=== PATIENT | male | born 1975 | race African-American/Black ===

== ENCOUNTER 2019-02-17 18:04 | Emergency (ER) | payer MEDICARE ==
[2019-02-17] MEDS ORDERED: DIAZEPAM 5 MG TABLET PO ONE (18:11)
--- NOTE | 2019-02-17 18:17 | Emergency Department Record ---
History of Present Illness - General Chief Complaint: Back Pain/Injury Stated Complaint: BACK PAIN Time Seen by Provider: 02/17/19 18:05 Source: Patient Mode of Arrival: Wheelchair Limitations: No limitations - History of Present Illness Initial Comments: 43 yo male presents to ED for evaluation of right-sided low back pain symptoms after heavy lifting at work 4 days ago. Patient denies numbness, tingling, or extremity weakness on examination. Patient denies numbness over the groin, urinary retention symptoms. Patient denies fever or history of IVDA, denies previous back surgery. Patient has take Ketoralac x 1 that he reports did not help with his pain symptoms at home. MD Complaint: Back pain Onset/Timin -: Days(s) Place: Work Radiation: None Severity: Moderate Quality: Aching Consistency: Constant Improves With: Sitting upright Worsens With: Movement Context: While lifting Associated Symptoms: Denies other symptoms Treatments Prior to Arrival: NSAIDS - Related Data Previous Rx's Medication Instructions Recorded Diazepam [Valium] 5 mg PO Q8H PRN #9 tab 02/17/19 Ibuprofen [Motrin] 800 mg PO Q6H PRN #30 tab 02/17/19 Allergies Allergy/AdvReac Type Severity Reaction Status Date / Time coconut Allergy hives Verified 02/17/19 19:53 Review of Systems Constitutional: Denies: Chills, Fever, Malaise, Night sweats Eyes: Denies: Eye discharge, Eye pain ENT: Denies: Congestion, Ear pain, Epistaxis Respiratory: Denies: Cough, Dyspnea Cardiovascular: Denies: Chest pain, Dyspnea on exertion Endocrine: Denies: Fatigue, Heat or cold intolerance Gastrointestinal: Denies: Abdominal pain, Nausea, Vomiting Genitourinary: Denies: Incontinence, Retention Musculoskeletal: Reports: Back pain. Denies: Arthralgia, Gout, Joint swelling Skin: Denies: Bruising, Change in color Neurological: Denies: Abnormal gait, Confusion, Headache, Weakness Psychiatric: Denies: Anxiety Hematological/Lymphatic: Denies: Anemia, Blood Clots Past Medical History - SOCIAL HISTORY Smoking Status: Never smoker Drug Use: None - RESPIRATORY Hx Respiratory Disorders: No - CARDIOVASCULAR Hx Cardio Disorders: No - NEURO Hx Neuro Disorders: No - GI Hx GI Disorders: No - Hx Genitourinary Disorders: No - ENDOCRINE Hx Endocrine Disorders: Yes Hx Diabetes: Yes - MUSCULOSKELETAL Hx Musculoskeletal Disorders: No - PSYCH Hx Psych Problems: No - HEMATOLOGY/ONCOLOGY Hx Hematology/Oncology Disorders: No Family Medical History Family Hx Comment (NOT TO BE USED IN PLACE OF ITEMS BELOW): none Physical Exam - General General Appearance: Alert, Oriented x3, Cooperative, Moderate distress (Due to pain symptoms) Limitations: No limitations - Head Head exam: Atraumatic, Normocephalic, Normal inspection Head exam detail: negative: Abrasion, Contusion, Siegel's sign, General tenderness, Hematoma, Laceration - Eye Eye exam: Normal appearance. negative: Conjunctival injection, Periorbital swelling, Periorbital tenderness, Scleral icterus - ENT Ear exam: negative: Auricular hematoma, Auricular trauma Nasal Exam: negative: Active bleeding, Discharge, Dried blood, Foreign body Mouth exam: negative: Drooling, Laceration, Muffled voice, Tongue elevation - Neck Neck exam: Normal inspection. negative: Meningismus, Tenderness - Respiratory Respiratory exam: Normal lung sounds bilaterally. negative: Respiratory distress, Rhonchi, Stridor, Wheezes - Cardiovascular Cardiovascular Exam: Regular rate, Normal rhythm, Normal heart sounds - GI/Abdominal GI/Abdominal exam: Soft. negative: Distended, Rebound, Rigid, Tenderness - Rectal Rectal exam: Deferred - exam: Deferred - Extremities Extremities exam: negative: Calf tenderness, Pedal edema, Tenderness - Back Back exam: Reports: Paraspinal tenderness (Right sided paravertebral muscles are TTP on exmaination, mild TTP over the midling lower lumbar region on examination, no erythema or rash present on examination.) - Neurological Neurological exam: Alert, Oriented X3. negative: Motor sensory deficit - Psychiatric Psychiatric exam: Normal affect, Normal mood - Skin Skin exam: Normal color. negative: Abrasion Type of lesion: negative: abrasion Course - Reevaluation(s) Reevaluation #1: 02/17/19 19:38 Patient was reassessed, reports improvement in his pain symptoms. Awaiting radiologic interpretation of patient's films. 02/17/19 20:13 PM Lumbar Spine: Mild wedge deformities present likely degenerative in nature No acute process Patient was updated on his radiograph results, patient reports improvement in his pain symptoms and appears stable for discharge at this time. Disposition Disposition: Discharge Clinical Impression: Low back pain Qualifiers: Chronicity: acute Back pain laterality: right Sciatica presence: without sciatica Qualified Code(s): M54.5 - Low back pain Disposition: Home, Self-Care Condition: (2) Stable Instructions: Low Back Strain (ED) Additional Instructions: Return to ED if your symptoms worsen or if you have any concerns. Motrin 800 mg and Valium as directed. Follow-up with your family doctor in 3-5 days as directed. Prescriptions: Ibuprofen [Motrin] 800 mg PO Q6H PRN #30 tab PRN Reason: Pain - Mod To Severe (5-10) Diazepam [Valium] 5 mg PO Q8H PRN #9 tab PRN Reason: Spasms Forms: Patient Portal Access Time of Disposition: 19:39 Quality - Quality Measures Quality Measures: N/A - Blood Pressure Screening Does Patient Have Any of the Following: No Blood Pressure Classification: Normal BP Reading Systolic Measurement: 101 Diastolic Measurement: 62 Screening for High Blood Pressure: < Normal BP, F/U Not Required > [[id number]]
== END 2019-02-17 19:58 | disposition home or self-care (01) ==
LOC: ER 18:04
DX: G89.11 Acute pain due to trauma (principal); M54.5 Low back pain; X50.9XXA Other and unspecified overexertion or strenuous movements or postures, initial encounter; Y99.0 Civilian activity done for income or pay
CPT/HCPCS: 99283 ×2; 72100; J3490